=== PATIENT | female | born 1945 | race Caucasian/White ===

== ENCOUNTER 2017-04-19 11:57 | Observation (INO) ==
[2017-04-19] MEDS ORDERED: Ipratropium/Albuterol Neb 3 ML IH ONE (12:28)
--- NOTE | 2017-04-19 13:24 | Emergency Department Note ---
Disposition Clinical Impression: Cough Dyspnea Qualifiers: Dyspnea type: unspecified Qualified Code(s): R06.00 - Dyspnea, unspecified Disposition: Admitted As Inpatient Condition: Good Time of Disposition: 16:50 General Adult HPI - General Chief complaint: ED Shortness of Breath/Dyspnea Stated complaint: coughing and shortness of breath Time Seen by Provider: 04/19/17 12:27 Source: patient Limitations: no limitations Nursing Notes Reviewed: Yes Vital Signs Reviewed: Yes - History of Present Illness HPI Narrative: Patient is a 71-year-old female that presents to the emergency department for cough and shortness of breath. She states that she has been dealing with rhonchi this and has been taking antibiotic for the past 8 days with a has not been getting any better. She states that she feels tired and generalized weakness. States that she has a cough that is productive. Patient denies any sick contacts or recent travels. She denies using any inhalers or nebulizers treatments at home. She has also stated that she has some mild left-sided chest pain that she describes as heaviness with shortness of breath. She states that she has become somewhat diaphoretic with this. States that this started possibly a couple of days ago. Pain Scale: 0 - Related Data Home Medications Medication Instructions Recorded Confirmed Atenolol [Tenormin] 50 mg PO DAILY 04/19/17 04/19/17 Bupropion HCl [Wellbutrin Xl] 300 mg PO DAILY 04/19/17 04/19/17 Cholecalciferol (D-3) [Vitamin D] 1,000 unit PO DAILY 04/19/17 04/19/17 Cyanocobalamin (Vitamin B-12) 1,000 mcg PO DAILY 04/19/17 04/19/17 [Vitamin B12] Paroxetine HCl [Paxil] 40 mg PO DAILY 04/19/17 04/19/17 Simvastatin [Zocor] 20 mg PO HS 04/19/17 04/19/17 levoFLOXacin [Levofloxacin] 750 mg PO DAILY 04/19/17 04/19/17 Allergies Allergy/AdvReac Type Severity Reaction Status Date / Time No Known Allergies Allergy Verified 04/19/17 12:11 All systems ED: reviewed and negative except as stated. Constitutional: Reports: weakness (Generalized) Cardiovascular: Reports: chest pain Respiratory: Reports: cough, dyspnea, sputum production Past Medical History - Past Medical History Medical history: Reports: diabetes, hyperlipidemia, hypertension Psychiatric history: Reports: anxiety, depression - Social History Smoking Status: Never smoker Smokeless Tobacco Status: No Alcohol use: Reports: none Drug use: Reports: none Physical Exam - General Limitations: no limitations General appearance: alert, in no apparent distress - Head Head exam: atraumatic, normocephalic - Eye Eye exam: Present: normal appearance, EOMI - Neck Neck exam: Present: normal inspection, full ROM, trachea midline - Respiratory Respiratory exam: Present: normal lung sounds bilaterally, wheezes (Bilaterally) . Absent: respiratory distress - Cardiovascular Cardiovascular exam: Present: regular rate, normal rhythm, normal heart sounds, +S1, +S2 - Abdominal Exam Abdominal exam: Present: soft, Non-Tender, normal bowel sounds - Neurological Exam Neurological exam: Present: alert, oriented X3 - Psychiatric Psychiatric exam: Present: normal affect, normal mood - Skin Skin exam: Present: warm, dry, intact Course Vital Signs Temperature 98.3 F 04/19/17 12:05 Pulse Rate 97 04/19/17 12:05 Respiratory Rate 16 04/19/17 12:05 Blood Pressure 134/83 04/19/17 12:05 O2 Sat by Pulse Oximetry 94 04/19/17 12:05 Temperature 98 F 04/21/17 00:04 Pulse Rate 80 04/21/17 00:04 Respiratory Rate 16 04/21/17 00:04 Blood Pressure 123/66 04/21/17 00:04 O2 Sat by Pulse Oximetry 92 04/21/17 00:04 Oxygen Delivery Oxygen Delivery Nasal Cannula Medical Decision Making - [facility] Narrative Medical decision making narrative: Due to the patient having just been short of breath with a cardiac workup including CBC, BMP, troponin, chest x-ray, EKG and we will give the patient a breathing treatment here in the emergency department. Her troponin was negative , EKG showed a sinus rhythm. Chest x-ray did not show any acute cardiopulmonary process. The remainder laboratory testing was unremarkable. the patient has failed outpatient therapy of Levaquin. CT showed no evidence for pulmonary. Due to this the patient will need to be admitted to the hospital for further evaluation and management. The patient will be started on azithromycin and ceftriaxone due to failing outpatient therapy. I called and spoke to the hospitalist negative except for the patient to the service. The patient be admitted to the hospital this time for further evaluation and management. - Lab Data Lab results reviewed: Yes I reviewed the patient's lab results. Result diagrams: 04/20/17 01:48 04/20/17 01:48 Lab Results 04/19/17 04/19/17 04/19/17 Range/Units 13:51 13:51 13:51 WBC 9.2 (4.3-11.1) K/mcL RBC 4.78 (3.82-4.97) M/mcL Hgb 12.8 (11.5-15.4) g/dL Hct 39.2 (35.3-44.9) % MCV 82.0 L (83.0-100.0) fL MCH 26.8 L (28.0-33.3) pg MCHC 32.7 (31.6-35.5) g/dL RDW 12.9 (11.5-14.5) % Plt Count 262 (140-400) K/mcL MPV 9.1 L (9.4-12.4) fL Immature Gran % 0.4 (0-4) % Seg Neutrophils % 65.4 % Lymphocytes % 21.9 % Monocytes % 8.5 % Eosinophils % 3.4 % Basophils % 0.4 % Neutrophils # 6.0 (1.6-8.9) K/mcL Lymphocytes # 2.0 (0.6-4.6) K/mcL Monocytes # 0.8 (0.0-1.3) K/mcL Eosinophils # 0.3 (0.0-0.6) K/mcL Basophils # 0.0 (0.0-0.2) K/mcL Sodium 138 (136-145) mEq/L Potassium 4.2 (3.5-5.1) mEq/L Chloride 105 (98-107) mEq/L Carbon Dioxide 29 (23-29) mEq/L BUN 15 (8-23) mg/dL Creatinine 0.67 (0.60-1.20) mg/dL Est GFR ( Amer) > 60 (> 60) Est GFR (Non-Af Amer) > 60 (> 60) BUN/Creatinine Ratio 22 (6-26) Glucose 127 H (70-105) mg/dL Calculated Osmolality 288 (280-300) Calcium 9.1 (8.6-10.3) mg/dL Troponin I < 0.03 (< 0.04) ng/mL B-Natriuretic Peptide (Less than 100) pg/mL 04/19/17 Range/Units 13:51 WBC (4.3-11.1) K/mcL RBC (3.82-4.97) M/mcL Hgb (11.5-15.4) g/dL Hct (35.3-44.9) % MCV (83.0-100.0) fL MCH (28.0-33.3) pg MCHC (31.6-35.5) g/dL RDW (11.5-14.5) % Plt Count (140-400) K/mcL MPV (9.4-12.4) fL Immature Gran % (0-4) % Seg Neutrophils % % Lymphocytes % % Monocytes % % Eosinophils % % Basophils % % Neutrophils # (1.6-8.9) K/mcL Lymphocytes # (0.6-4.6) K/mcL Monocytes # (0.0-1.3) K/mcL Eosinophils # (0.0-0.6) K/mcL Basophils # (0.0-0.2) K/mcL Sodium (136-145) mEq/L Potassium (3.5-5.1) mEq/L Chloride (98-107) mEq/L Carbon Dioxide (23-29) mEq/L BUN (8-23) mg/dL Creatinine (0.60-1.20) mg/dL Est GFR ( Amer) (> 60) Est GFR (Non-Af Amer) (> 60) BUN/Creatinine Ratio (6-26) Glucose (70-105) mg/dL Calculated Osmolality (280-300) Calcium (8.6-10.3) mg/dL Troponin I (< 0.04) ng/mL B-Natriuretic Peptide 29 (Less than 100) pg/mL - Radiology Data Radiology results reviewed: Yes I reviewed the patient's radiology results. Chest CTA 04/19/17 14:47 IMPRESSION: No evidence of pulmonary embolism or acute pulmonary abnormality. Bilateral ground-glass infiltrate D/ / Joés Miguel Moya MD / José Miguel Moya MD Interpreting Provider: José Miguel Moya MD - EKG Data EKG #1 EKG attestation: Yes I reviewed and interpreted this EKG. EKG results narrative: EKG shows sinus rhythm at a rate of 67 bpm, per telephone before coming to respiration of 80, QTC of 409 with a normal axis. There is no evidence of STEMI and this EKG. There is no old EKG for comparison. Attestation Statement - Attestation Attestation: I examined this patient and my medical decision-making was reviewed with the Resident Physician. I agree with the documented findings, disposition and treatment plan as described except to the extent set forth below. Possible pneumonia. Will admit to the hospital after initiation of antibiotics to cover for community-acquired pneumonia. Patient was stable at time of admission. Vital signs are stable.
[2017-04-19 14:05] LABS: Basophils % 0.4 %; Eosinophils # 0.3 K/mcL (0.0-0.6); Eosinophils % 3.4 %; Hematocrit 39.2 % (35.3-44.9); Hemoglobin 12.8 g/dL (11.5-15.4); Immature Granulocytes % 0.4 % (0-4); Lymphocytes % 21.9 %; Mean Corpuscular HGB Conc 32.7 g/dL (31.6-35.5); Mean Corpuscular Hemoglobin 26.8 pg (28.0-33.3); Mean Platelet Volume 9.1 fL (9.4-12.4); Monocytes # 0.8 K/mcL (0.0-1.3); Monocytes % 8.5 %; Platelet Count 262 K/mcL (140-400); Red Blood Count 4.78 M/mcL (3.82-4.97); Red Cell Distribution Width 12.9 % (11.5-14.5); Segmented Neutrophils % 65.4 %
[2017-04-19 14:18] LABS: BUN/Creatinine Ratio 22 (6-26); Blood Urea Nitrogen 15 mg/dL (8-23); Calcium 9.1 mg/dL (8.6-10.3); Carbon Dioxide 29 mEq/L (23-29); Chloride 105 mEq/L (98-107); Glucose 127 mg/dL (70-105); Osmolality,Calculated 288 (280-300); Potassium 4.2 mEq/L (3.5-5.1); Sodium 138 mEq/L (136-145); eGFR For African Americans > 60 (> 60); eGFR For Non-African Americans > 60 (> 60)
[2017-04-19] MEDS ORDERED: methylPREDNISolone 125 MG/2 ML VIAL IVP ONE (14:48)
[2017-04-19] MEDS ORDERED: HYDROcodone BIT/Homatropine 5 MG TABLET PO ONE (14:51)
[2017-04-19] MEDS ORDERED: cefTRIAXone 1,000 MG in Water for inj. (sterile) 10 ML IVP ONE (14:55)
[2017-04-19] MEDS ORDERED: Azithromycin 500 MG in D5% in Water 250 ML IVPB ONE (14:55)
[2017-04-19] MEDS ORDERED: *HR* HYDROcodone/Acet 5/325 mg TABLET PO PRN (20:55)
[2017-04-19] MEDS ORDERED: Acetaminophen 325 MG TABLET PO PRN (20:55)
[2017-04-19] MEDS ORDERED: Ondansetron 4 MG/2 ML VIAL IVP PRN (20:55)
[2017-04-19] MEDS ORDERED: Naloxone 0.4 MG/ML INJ IVP PRN (20:55)
[2017-04-19] MEDS: Ipratropium/Albuterol Neb 3 ML IH SCH (21:29)
--- NOTE | 2017-04-19 21:34 | Internal Med History&Physical ---
<Jacoby Peter - Last Filed: 04/19/17 22:03> Date of Encounter: 04/19/17 Time of Encounter: 20:00 Assessment and Plan (1) Bronchitis Current visit: Yes Status: Acute Unresolved bronchitis w/failed OP abx therapy. Pt. reports being dx w/ bronchitis by PCP last Monday and placed on PO levaquin. Sx worsened. Pt. reports fatigue, SOB, and cough w/sputum production. IVPB azithromycin 500 mg daily and Rocephin 1,000 mg daily for infection coverage. Will adjust abx coverage based on culture results. Supplemental O2 w/titration and SpO2 monitoring. DuoNebs Q6 scheduled. Mucinex for cough. Monitor pt. and f/u labs. Pt. discussed w/Dr. Gotti who is in agreement w/plan o care. Pt. is at high risk for further morbidity based on failed OP abx therapy, worsening sx, and current SOB/dyspnea. Observation. (2) Cough Current visit: Yes Status: Acute Acute cough associated w/SOB. Pt. reports sputum production. Sputum culture. Mucinex for cough. DuoNebs Q6 scheduled. (3) Dyspnea Current visit: Yes Status: Acute Acute SOB since last Monday that has worsened. Initial concern for possible PE, however CTA of chest negative for PE. Supplemental O2 w/titration and SpO2 monitoring. DuoNebs Q6 scheduled. Solumedrol 40 mg Q8. Qualifiers: Dyspnea type: unspecified Qualified Code(s): R06.00 - Dyspnea, unspecified (4) Diabetes Current visit: Yes Status: Chronic Hx of chronic diabetes. Pt. states she used to take Metformin but no longer takes it. BG checks ACHS. A1c in a.m. labs. Low-dose correction insulin sliding scale w/hypoglycemic protocol. Qualifiers: Diabetes mellitus type: type 2 Diabetes mellitus complication status: with unspecified complications Diabetes mellitus intermediate manager insulin use: without fci use Qualified Code(s): E11.8 - Type 2 diabetes mellitus with unspecified complications (5) HTN (hypertension) Current visit: Yes Status: Chronic Hx of chronic HTN. Monitor pt. and VS. Continue pts. Atenolol. Qualifiers: Hypertension type: essential hypertension Qualified Code(s): I10 - Essential (primary) hypertension (6) HLD (hyperlipidemia) Current visit: Yes Status: Chronic Hx of chronic HLD. Lipid panel in a.m. labs. Continue pts. Zocor. Qualifiers: Hyperlipidemia type: pure hypercholesterolemia Qualified Code(s): E78.00 - Pure hypercholesterolemia, unspecified; E78.0 - Pure hypercholesterolemia (7) DVT prophylaxis Current visit: Yes Status: Acute Heparin 5,000 units SQ Q8 for DVT prophylaxis. Monitor pt. for signs of bleeding. Internal Medicine - H&P: HPI Chief complaint: SOB/Dyspnea Admitted From: Emergency Dept Plans for Post Hospital Care: Home History of present illness: Ms. Julien is a 71 year old female with medical hx of diabetes, hyperlipidemia , hypertension reports the ED with chief complaint of shortness of breath and dyspnea which is worsened over the past 2 days. Patient was diagnosed with bronchitis last Monday by her PCP and placed on by mouth Levaquin. Patient states she took 7 pills of the 10 but began feeling worse and more tired, SOB, and developed cough with sputum production. Reports pleuritic chest pain with inspiration and cough. Patient reports nausea and vomiting x1 two days ago but denies fever, chills, headache, chest pain, palpitations, unusual bleeding, numbness, tingling, dizziness, lightheadedness, pre-syncope, or syncope. Past Med Surg Social Fam HX - Past Medical History Source: patient, old records reviewed Medical history: diabetes, hyperlipidemia, hypertension Psychiatric history: anxiety, depression - Social History Smoking Status: Never smoker Smokeless Tobacco Status: No Alcohol use: none Drug use: none Current living situation: Home Activity Level: Independent ambulation Recent Out of Country Travel Within the Last 8 Weeks: No Exposure or Possible Exposure to Illness During Travel: No - Family History Mother Race: Family Member Ethnicity: Non- Living Status: Age at : 83 Cause of : DM complications Hx Family Genitourinary Disorders: Yes (CKD) Hx Family Endocrine Disorder: Yes (DM) Father History Unknown: Yes Race: Family Member Ethnicity: Non- Living Status: Age at : 60 Cause of : Unknown Brother Race: Family Member Ethnicity: Non- Living Status: Age at : 70 Cause of : Metastatic colon cancer Hx Family Cancer: Yes (Colon) Sister Race: Family Member Ethnicity: Non- Living Status: Age at : 80 Cause of : Breast cancer Hx Family Cancer: Yes (Breast) Internal Medicine - H&P: Meds Atenolol [Tenormin] 50 mg PO DAILY 04/19/17 [History] Bupropion HCl [Wellbutrin Xl] 300 mg PO DAILY 04/19/17 [History] Cholecalciferol (D-3) [Vitamin D] 1,000 unit PO DAILY 04/19/17 [History] Cyanocobalamin (Vitamin B-12) [Vitamin B12] 1,000 mcg PO DAILY 04/19/17 [History ] Paroxetine HCl [Paxil] 40 mg PO DAILY 04/19/17 [History] Simvastatin [Zocor] 20 mg PO HS 04/19/17 [History] levoFLOXacin [Levofloxacin] 750 mg PO DAILY 04/19/17 [History] 3 Allergy/AdvReac Type Severity Reaction Status Date / Time No Known Allergies Allergy Verified 04/19/17 12:11 All Systems PM: A 10-system review of systems was performed and is negative for pertinent findings except as documented above in the HPI. - Constitutional Constitutional: as per HPI, weakness, no chills, no fever(s), no night sweats - EENT Eyes: no change in vision, no discharge, no pain, no photophobia Ears: no ear discharge, no ear pain, no tinnitus Nose, mouth and throat: no dysphagia, no nasal discharge, no neck pain, no sore throat - Breasts Breasts: as per HPI - Cardiovascular Cardiovascular ROS IM: as per HPI, dyspnea, dyspnea on exertion, no chest pain, no diaphoresis, no lightheadedness, no palpitations, no syncope - Respiratory Respiratory: as per HPI, cough, dyspnea, dyspnea on exertion, pain with cough, no wheezing, no excessive phlegm production - Gastrointestinal Gastrointestinal: as per HPI, nausea, vomiting, no abdominal pain, no diarrhea, no hematemesis, no hematochezia, no melena - Genitourinary Genitourinary: no change in urinary stream, no dysuria, no flank pain, no hematuria Menstruation: as per HPI - Musculoskeletal Musculoskeletal ROS IM: no numbness, no tingling - Integumentary Integumentary IM: no rash, no unusual bruising - Neurological Neurological ROS: no confusion, no convulsions, no focal weakness, no numbness, no tingling, no tremor(s) - Psychiatric Psychiatric: as per HPI - Endocrine Endocrine IM: as per HPI - Hematologic/Lymphatic Hematologic/Lymphatic: no easy bruising - Allergic/Immunologic Allergic/Immunologic: as per HPI - Constitutional Vitals: Temp Pulse Resp BP Pulse Ox 98.6 F 74 15 120/73 92 04/19/17 20:14 04/19/17 20:14 04/19/17 20:14 04/19/17 20:14 04/19/17 20:14 General appearance: Present: cooperative, A&O X 3, pleasant, no acute distress, obese, answers questions appropriately - Head Head exam: Present: atraumatic, normocephalic - Eye Eye exam: Present: PERRL, conjuntiva pink, sclera anicteric Pupils: Present: PERRL - ENT ENT exam: Present: normal exam - Neck Neck exam general surgery: Present: normal inspection - Respiratory Respiratory exam: Present: accessory muscle use, decreased breath sounds - Cardiovascular Cardiovascular exam: Present: RRR, +S1, +S2. Absent: diastolic murmur, gallop, rubs, systolic murmur - GI/Abdominal GI/Abdominal exam: Present: normal bowel sounds, soft, no peritoneal signs. Absent: distended, tenderness - Rectal Rectal exam: Present: deferred - Additional comments: exam deferred. - Extremities Exam Extremities exam: Present: warm, radial pulses palpable and symmetrical. Absent : calf tenderness, cyanotic, pedal edema - Back Exam Back exam: Present: normal inspection - Neurological Exam Neurological exam: Present: CN II-XII intact, oriented X3, no focal deficits. Absent: pronater drift, facial droop, speech deficit - Psychiatric Psychiatric exam: Present: normal affect, normal mood - Skin Skin exam: Present: dry, intact Internal Med - H&P Results - Labs CBC & Chem 7: 04/19/17 13:51 04/19/17 13:51 - EKG Data EKG shows normal: sinus rhythm - EKG Data Prior EKG available for review: no Interpretation IM: suggestive of ischemia EKG comments: 04/19/17 21:40 EKG dated 04/19/17 shows sinus rhythm with probable inferior myocardial infarction (probably old). - Diagnostic Studies Other Images Additional comments: Impressions Chest CTA 01/17/18 14:47 IMPRESSION: No evidence of pulmonary embolism or acute pulmonary abnormality. Bilateral ground-glass infiltrate D/ / José Miguel Moya MD / José Miguel Moya MD Interpreting Provider: José Miguel Moya MD <Xu Gotti - Last Filed: 04/20/17 01:18> Date of Encounter: 04/19/17 Time of Encounter: 23:20 - Constitutional Vitals: Temp Pulse Resp BP Pulse Ox 97.6 F 85 14 121/68 93 04/19/17 22:49 04/19/17 22:49 04/19/17 22:49 04/19/17 22:49 04/19/17 22:49 General appearance: Present: no acute distress - Eye Eye exam: Present: PERRL. Absent: scleral icterus - ENT ENT exam: Present: mucous membranes dry - Neck Neck exam general surgery: Present: supple. Absent: tenderness - Respiratory Respiratory exam: Present: accessory muscle use, decreased breath sounds, rales (faint left basilar crackles), rhonchi. Absent: wheezes - Cardiovascular Cardiovascular exam: Present: RRR, +S1, +S2 - GI/Abdominal GI/Abdominal exam: Present: normal bowel sounds, soft. Absent: hepatomegaly, tenderness - Extremities Exam Extremities exam: Present: warm. Absent: tenderness - Back Exam Back exam: Absent: CVA tenderness (L), CVA tenderness (R) - Skin Skin exam: Absent: rash Internal Med - H&P Results - Labs CBC & Chem 7: 04/19/17 13:51 04/19/17 13:51 - Attending Attestation I discussed the patient CHITIMACHA, PMH, ROS, lab data, and exam findings with Ethan Peter CNP. I then saw and examined patient independently as well. Patient failed outpatient treatment for bronchitis with worsening symptoms. She now presents with concerns for persistent bronchitis and/or evolving pneumonia. I agree with the treatment regimen detailed by Ethan. I reviewed her EKG and, although she denies chest pain, I will order serial troponins to rule out ischemia. Other than my above comments and noted exam findings, I agree with Ethan's assessment and plan.
[2017-04-19] MEDS ORDERED: D5% in Water 1,000 ML IVC PRN (21:48)
[2017-04-19] MEDS ORDERED: *HR* Dextrose 50 % in Water (Syg) 50 ML SYRINGE IVP PRN (21:48)
[2017-04-19] MEDS ORDERED: Dextrose Gel 15 GM/37.5 ML TUBE PO PRN ×2 (21:48)
[2017-04-19] MEDS: Insulin LISPRO 300 UNITS/3 ML VIAL SQ SCH (22:59)
[2017-04-19] MEDS: MethylPREDNISolone 40 MG/ML VIAL IVP SCH (23:00)
[2017-04-19] MEDS: *HR* Heparin 5,000 UNIT/ML VIAL SQ SCH (23:00)
[2017-04-20 02:01] LABS: Basophils % 0.2 %; Hematocrit 39.7 % (35.3-44.9); Hemoglobin 12.7 g/dL (11.5-15.4); Immature Granulocytes % 0.6 % (0-4); Lymphocytes # 0.8 K/mcL (0.6-4.6); Lymphocytes % 10.4 %; Mean Corpuscular Hemoglobin 26.5 pg (28.0-33.3); Mean Corpuscular Volume 82.9 fL (83.0-100.0); Mean Platelet Volume 9.2 fL (9.4-12.4); Monocytes # 0.1 K/mcL (0.0-1.3); Monocytes % 1.4 %; Neutrophils # 7.1 K/mcL (1.6-8.9); Platelet Count 265 K/mcL (140-400); Red Blood Count 4.79 M/mcL (3.82-4.97); Red Cell Distribution Width 12.7 % (11.5-14.5); Segmented Neutrophils % 87.4 %
[2017-04-20 02:09] LABS: Hemoglobin A1C 6.3 %
[2017-04-20 02:17] LABS: Alanine Aminotransferase 17 Units/L (7-52); Albumin 3.8 g/dL (3.5-5.7); Albumin/Globulin Ratio 1.4 (1.1-2.2); Alkaline Phosphatase 77 Units/L (34-104); Aspartate Amino Transferase 16 Units/L (13-39); BUN/Creatinine Ratio 22 (6-26); Bilirubin,Total 0.4 mg/dL (0.3-1.0); Blood Urea Nitrogen 17 mg/dL (8-23); Carbon Dioxide 26 mEq/L (23-29); Chloride 104 mEq/L (98-107); Chol/HDL Ratio 4.1 (0-4.9); Cholesterol 173 mg/dL (< 200); Globulin 2.8 g/dL (2.4-3.5); Glucose 236 mg/dL (70-105); HDL Cholesterol 42 mg/dL (40-59); LDL Cholesterol,Calculated 121 mg/dL (0-99); Osmolality,Calculated 295 (280-300); Potassium 3.8 mEq/L (3.5-5.1); Sodium 138 mEq/L (136-145); Total Protein 6.6 g/dL (6.4-8.9); Triglycerides 48 mg/dL (< 150); eGFR For African Americans > 60 (> 60); eGFR For Non-African Americans > 60 (> 60)
[2017-04-20] MEDS: Ipratropium/Albuterol Neb 3 ML IH SCH ×4 (03:22→22:17)
--- NOTE | 2017-04-20 07:52 | Electrocardiograph Report ---
[facility] Test Date: 2017-04-19 Pat Name: Janessa Julien Department: 104 Room: 3B12 Gender: F Ordained Minister: : 1945 Requested By: Isacc Arnold Order Number: [id number] Reading MD: Sergey Squires DO Measurements Intervals [place] Rate: 67 P: 55 MS: 144 QRS: 11 QRSD: 80 T: 30 QT: 393 QTc: 409 Interpretive Statements SINUS RHYTHM PROBABLE INFERIOR MYOCARDIAL INFARCTION, PROBABLY OLD WARNING: DATA QUALITY MAY AFFECT INTERPRETATION Electronically Signed On 04-20-2017 7:50:39 EST by Sergey Squires DO
[2017-04-20] MEDS: cefTRIAXone 1,000 MG in Water for inj. (sterile) 20 ML 10 ML IVP SCH (08:03)
[2017-04-20] MEDS: MethylPREDNISolone 40 MG/ML VIAL IVP SCH ×3 (08:03→23:38)
[2017-04-20] MEDS: Insulin LISPRO 300 UNITS/3 ML VIAL SQ SCH ×4 (08:03→20:32)
[2017-04-20] MEDS: Cholecalciferol (D-3) 1,000 UNIT TABLET PO SCH (08:04)
[2017-04-20] MEDS: BuPROPion XL (24 HR) 150 MG TABLET PO SCH (08:04)
[2017-04-20] MEDS: Cyanocobalamin (B-12) 1,000 MCG TABLET PO SCH (08:04)
[2017-04-20] MEDS: *HR* Heparin 5,000 UNIT/ML VIAL SQ SCH ×3 (08:04→23:38)
--- NOTE | 2017-04-20 11:19 | Internal Med Progress Note ---
Date of Encounter: 04/20/17 Time of Encounter: 09:15 - Assessment and plan (1) Bronchitis Current Visit: Yes Status: Acute Assessment and plan: Pt presented to the ED for approximatedly 10 day history of productive cough, fatigue and SOB. She was placed on Levaquin by PCP and diagnosed with bronchitis and finished 7 day course of Levaquin yesterday. She did not improve and presented for admission to the ER. Lungs are diminished with faint expiratory wheezing heard in latoya post bases. No distress. Continue IV Zithromax and Rocephin Continue to titrate 02 as needed to maintain sats > 92% Continue IV Solu-Medrol Continue Duonebs Chest CTA 04/19/17 14:47 IMPRESSION: No evidence of pulmonary embolism or acute pulmonary abnormality. Bilateral ground-glass infiltrate D/ / José Miguel Moya MD / José Miguel Moya MD Interpreting Provider: José Miguel Moya MD (2) Dyspnea Current Visit: Yes Status: Acute Assessment and plan: SOB for 10 days that has worsened. Chest CTA negative for PE. Plan as above. Qualifiers: Dyspnea type: unspecified Qualified Code(s): R06.00 - Dyspnea, unspecified (3) Cough Current Visit: Yes Status: Acute Assessment and plan: Productive cough x 10 days. Plan as above. (4) Diabetes Current Visit: Yes Status: Chronic Assessment and plan: Pt has not been taking Metformin at home. Start SSI, accuchecks achs, and start diabetic diet. A1c 6.3% Qualifiers: Diabetes mellitus type: type 2 Diabetes mellitus complication status: with unspecified complications Diabetes mellitus long-term insulin use: without long-term use Qualified Code(s): E11.8 - Type 2 diabetes mellitus with unspecified complications (5) HTN (hypertension) Current Visit: Yes Status: Chronic Assessment and plan: Chronic. Continue home medications. Qualifiers: Hypertension type: essential hypertension Qualified Code(s): I10 - Essential (primary) hypertension (6) HLD (hyperlipidemia) Current Visit: Yes Status: Chronic Assessment and plan: Chronic. Continue home medications. Qualifiers: Hyperlipidemia type: pure hypercholesterolemia Qualified Code(s): E78.00 - Pure hypercholesterolemia, unspecified; E78.0 - Pure hypercholesterolemia (7) DVT prophylaxis Current Visit: Yes Status: Acute Assessment and plan: Heparin SQ TID - Time Spent With Patient less than 15 minutes - Subjective Interval history: Pt was seen and assessed at bedside at 0915 a.m. She is alert and awake, oriented. She has no headache, n/v/d, chest pain, abd pain, or dizziness. Pt reports cough that is productive sometimes. Denies chills, rigors. Pt states that she feels better, but does not feel that she is ready to go home. - Constitutional Vitals: Temp Pulse Resp BP Pulse Ox 98.4 F 78 16 133/81 94 04/20/17 10:40 04/20/17 10:40 04/20/17 10:40 04/20/17 10:40 04/20/17 10:40 General appearance: Present: cooperative, A&O X 3, pleasant, no acute distress. Absent: answers questions appropriately - Head Head exam: Present: atraumatic, normal inspection, normocephalic - Eye Eye exam: Present: normal appearance, PERRL, conjuntiva pink, sclera anicteric Pupils: Present: PERRL - Neck Neck exam general surgery: Present: normal inspection, supple, trachea midline. Absent: lymphadenopathy - Respiratory Respiratory exam: Present: decreased breath sounds, CTAB, wheezes. Absent: accessory muscle use, rales, respiratory distress, rhonchi Additional comments: Faint wheezing in latoya post bases - Cardiovascular Cardiovascular exam: Present: RRR, +S1, +S2. Absent: diastolic murmur, gallop, rubs, systolic murmur - GI/Abdominal GI/Abdominal exam: Present: hepatomegaly, normal bowel sounds, soft, no peritoneal signs. Absent: distended, tenderness - Extremities Exam Extremities exam: Present: normal capillary refill, normal inspection, tenderness, warm, radial pulses palpable and symmetrical. Absent: calf tenderness, cyanotic, pedal edema - Neurological Exam Neurological exam: Present: alert, oriented X3, no focal deficits. Absent: facial droop, speech deficit - Skin Skin exam: Present: dry, intact, normal color, warm. Absent: rash Internal Medicine: Result - Labs CBC & Chem 7: 04/20/17 01:48 04/20/17 01:48 Labs: Short CBC 04/20/17 Range/Units 01:48 WBC 8.1 (4.3-11.1) K/mcL Hgb 12.7 (11.5-15.4) g/dL Hct 39.7 (35.3-44.9) % Plt Count 265 (140-400) K/mcL Neutrophils # 7.1 (1.6-8.9) K/mcL BMP 04/20/17 01:48 Sodium 138 Potassium 3.8 Chloride 104 Carbon Dioxide 26 BUN 17 Creatinine 0.76 Glucose 236 H Calcium 9.0 Cardiac Enzymes 04/20/17 04/20/17 Range/Units 01:48 07:30 Troponin I < 0.03 < 0.03 (< 0.04) ng/mL Liver Function 04/20/17 Range/Units 01:48 Total Bilirubin 0.4 (0.3-1.0) mg/dL AST 16 (13-39) Units/L ALT 17 (7-52) Units/L Alkaline Phosphatase 77 (34-104) Units/L Albumin 3.8 (3.5-5.7) g/dL Consult Discharge Plan - Plan
[2017-04-20] MEDS: Azithromycin 500 MG in D5% in Water 250 ML IVPB SCH (15:40)
[2017-04-21] MEDS: Ipratropium/Albuterol Neb 3 ML IH SCH ×4 (03:22→22:15)
[2017-04-21 04:55] LABS: Basophils % 0.1 %; Hematocrit 39.3 % (35.3-44.9); Hemoglobin 12.7 g/dL (11.5-15.4); Immature Granulocytes % 1.3 % (0-4); Lymphocytes # 1.7 K/mcL (0.6-4.6); Lymphocytes % 7.9 %; Mean Corpuscular HGB Conc 32.3 g/dL (31.6-35.5); Mean Corpuscular Hemoglobin 26.8 pg (28.0-33.3); Mean Corpuscular Volume 83.1 fL (83.0-100.0); Mean Platelet Volume 9.7 fL (9.4-12.4); Monocytes # 0.8 K/mcL (0.0-1.3); Monocytes % 3.8 %; Platelet Count 308 K/mcL (140-400); Red Blood Count 4.73 M/mcL (3.82-4.97); Segmented Neutrophils % 86.9 %
[2017-04-21 05:00] LABS: Neutrophils # 18.9 K/mcL (1.6-8.9)
[2017-04-21 05:17] LABS: Alanine Aminotransferase 19 Units/L (7-52); Albumin 4.1 g/dL (3.5-5.7); Albumin/Globulin Ratio 1.6 (1.1-2.2); Alkaline Phosphatase 74 Units/L (34-104); Aspartate Amino Transferase 18 Units/L (13-39); BUN/Creatinine Ratio 32 (6-26); Bilirubin,Total 0.3 mg/dL (0.3-1.0); Blood Urea Nitrogen 23 mg/dL (8-23); Calcium 9.2 mg/dL (8.6-10.3); Carbon Dioxide 26 mEq/L (23-29); Chloride 102 mEq/L (98-107); Globulin 2.6 g/dL (2.4-3.5); Glucose 257 mg/dL (70-105); Osmolality,Calculated 294 (280-300); Potassium 3.9 mEq/L (3.5-5.1); Sodium 136 mEq/L (136-145); Total Protein 6.7 g/dL (6.4-8.9); eGFR For African Americans > 60 (> 60); eGFR For Non-African Americans > 60 (> 60)
[2017-04-21] MEDS: BuPROPion XL (24 HR) 150 MG TABLET PO SCH (08:41)
[2017-04-21] MEDS: Cyanocobalamin (B-12) 1,000 MCG TABLET PO SCH (08:42)
[2017-04-21] MEDS: Cholecalciferol (D-3) 1,000 UNIT TABLET PO SCH (08:42)
[2017-04-21] MEDS: cefTRIAXone 1,000 MG in Water for inj. (sterile) 20 ML 10 ML IVP SCH (08:43)
[2017-04-21] MEDS: Insulin LISPRO 300 UNITS/3 ML VIAL SQ SCH ×4 (08:44→20:30)
[2017-04-21] MEDS: *HR* Heparin 5,000 UNIT/ML VIAL SQ SCH ×3 (08:44→23:35)
[2017-04-21] MEDS: MethylPREDNISolone 40 MG/ML VIAL IVP SCH (09:03)
--- NOTE | 2017-04-21 10:06 | Internal Med Progress Note ---
Date of Encounter: 04/21/17 Time of Encounter: 09:15 - Assessment and plan (1) Bronchitis Current Visit: Yes Status: Acute Assessment and plan: Pt presented to the ED for approximatedly 10 day history of productive cough, fatigue and SOB. She was placed on Levaquin by PCP and diagnosed with bronchitis and finished 7 day course of Levaquin yesterday. She did not improve and presented for admission to the ER. Lungs are diminished with faint expiratory wheezing heard in latoya post bases. No distress at rest, but reports BALLESTEROS and increased cough with exertion. Continue IV Zithromax and Rocephin Continue to titrate 02 as needed to maintain sats > 92% Continue IV Solu-Medrol with decreased dose due to hyperglycemia and leukocytosis, pt concern. Continue Duonebs Chest CTA 04/19/17 14:47 IMPRESSION: No evidence of pulmonary embolism or acute pulmonary abnormality. Bilateral ground-glass infiltrate D/ / José Miguel Moya MD / José Miguel Moya MD Interpreting Provider: José Miguel Moya MD (2) Dyspnea Current Visit: Yes Status: Acute Assessment and plan: SOB for 10 days that has worsened. Chest CTA negative for PE. Plan as above. Qualifiers: Dyspnea type: unspecified Qualified Code(s): R06.00 - Dyspnea, unspecified (3) Cough Current Visit: Yes Status: Acute Assessment and plan: Productive cough x 10 days. Plan as above. (4) Diabetes Current Visit: Yes Status: Chronic Assessment and plan: Pt has not been taking Metformin at home. Start SSI, accuchecks achs, and start diabetic diet. A1c 6.3% Hyperglycemia due to IV steroid use, dose decreased due to pt concern. Qualifiers: Diabetes mellitus type: type 2 Diabetes mellitus complication status: with unspecified complications Diabetes mellitus custodial insulin use: without custodial use Qualified Code(s): E11.8 - Type 2 diabetes mellitus with unspecified complications (5) HTN (hypertension) Current Visit: Yes Status: Chronic Assessment and plan: Chronic. Continue home medications. Well controlled in the hospital. Qualifiers: Hypertension type: essential hypertension Qualified Code(s): I10 - Essential (primary) hypertension (6) HLD (hyperlipidemia) Current Visit: Yes Status: Chronic Assessment and plan: Chronic. Continue home medications. Qualifiers: Hyperlipidemia type: pure hypercholesterolemia Qualified Code(s): E78.00 - Pure hypercholesterolemia, unspecified; E78.0 - Pure hypercholesterolemia (7) DVT prophylaxis Current Visit: Yes Status: Acute Assessment and plan: Heparin SQ TID, pt has been ambulatory and up to chair. - Time Spent With Patient less than 15 minutes - Subjective Interval history: Pt was seen and assessed at bedside at 0915 a.m. She is alert and awake, oriented. She has no headache, n/v/d, chest pain, abd pain, or dizziness. Pt reports cough that is productive sometimes. Denies chills. Pt states that she feels better, but is still having BALLESTEROS and cough and does not feel that she will do well at home yet. - Constitutional Vitals: Temp Pulse Resp BP Pulse Ox 98.1 F 79 16 146/74 95 04/21/17 07:55 04/21/17 07:55 04/21/17 09:38 04/21/17 07:55 04/21/17 09:38 General appearance: Present: cooperative, mild distress, A&O X 3, pleasant, no acute distress, answers questions appropriately - Head Head exam: Present: atraumatic, normal inspection, normocephalic - Eye Eye exam: Present: normal appearance, conjuntiva pink, sclera anicteric - Neck Neck exam general surgery: Present: normal inspection, supple, trachea midline. Absent: lymphadenopathy, tenderness - Respiratory Respiratory exam: Present: decreased breath sounds, wheezes. Absent: accessory muscle use, chest wall tenderness, CTAB, rales, respiratory distress, rhonchi - Cardiovascular Cardiovascular exam: Present: RRR, +S1, +S2. Absent: diastolic murmur, gallop, rubs, systolic murmur - GI/Abdominal GI/Abdominal exam: Present: normal bowel sounds, soft, no peritoneal signs. Absent: distended, hepatomegaly, tenderness - Extremities Exam Extremities exam: Present: normal capillary refill, normal inspection, warm, radial pulses palpable and symmetrical. Absent: calf tenderness, cyanotic, pedal edema, tenderness - Neurological Exam Neurological exam: Present: alert, oriented X3, no focal deficits. Absent: facial droop, speech deficit - Skin Skin exam: Present: dry, intact, normal color, warm. Absent: rash Internal Medicine: Result - Labs CBC & Chem 7: 04/21/17 03:47 04/21/17 03:47 Labs: Short CBC 04/21/17 Range/Units 03:47 WBC 21.8 H D (4.3-11.1) K/mcL Hgb 12.7 (11.5-15.4) g/dL Hct 39.3 (35.3-44.9) % Plt Count 308 (140-400) K/mcL Neutrophils # 18.9 H (1.6-8.9) K/mcL BMP 04/21/17 03:47 Sodium 136 Potassium 3.9 Chloride 102 Carbon Dioxide 26 BUN 23 Creatinine 0.72 Glucose 257 H Calcium 9.2 Liver Function 04/21/17 Range/Units 03:47 Total Bilirubin 0.3 (0.3-1.0) mg/dL AST 18 (13-39) Units/L ALT 19 (7-52) Units/L Alkaline Phosphatase 74 (34-104) Units/L Albumin 4.1 (3.5-5.7) g/dL Consult Discharge Plan - Plan Referrals: Odette Price,Tomasa El [Primary Care Provider] -
[2017-04-21] MEDS ORDERED: MethylPREDNISolone 40 MG/ML VIAL IVP ONE (10:16)
[2017-04-21 14:47] LABS: Basophils % 0.1 %; Hematocrit 37.1 % (35.3-44.9); Hemoglobin 12.3 g/dL (11.5-15.4); Immature Granulocytes % 2.5 % (0-4); Lymphocytes # 1.1 K/mcL (0.6-4.6); Lymphocytes % 5.4 %; Mean Corpuscular HGB Conc 33.2 g/dL (31.6-35.5); Mean Corpuscular Hemoglobin 27.3 pg (28.0-33.3); Mean Corpuscular Volume 82.4 fL (83.0-100.0); Mean Platelet Volume 9.3 fL (9.4-12.4); Monocytes # 0.8 K/mcL (0.0-1.3); Monocytes % 3.9 %; Neutrophils # 18.5 K/mcL (1.6-8.9); Platelet Count 285 K/mcL (140-400); Segmented Neutrophils % 88.1 %
[2017-04-21] MEDS: Azithromycin 500 MG in D5% in Water 250 ML IVPB SCH (15:30)
[2017-04-21] MEDS ORDERED: Aspirin 325 MG TABLET PO ONE (23:53)
[2017-04-22] MEDS ORDERED: Nitroglycerin 0.4 MG TAB.SUBL SL PRN (00:16)
[2017-04-22] MEDS ORDERED: Nitroglycerin 0.4 MG TAB.SUBL SL ONE (00:18)
[2017-04-22 00:23] LABS: Basophils % 0.2 %; Eosinophils % 0.1 %; Hematocrit 36.9 % (35.3-44.9); Immature Granulocytes % 4.8 % (0-4); Lymphocytes % 5.4 %; Mean Corpuscular HGB Conc 32.5 g/dL (31.6-35.5); Mean Corpuscular Hemoglobin 27.1 pg (28.0-33.3); Mean Corpuscular Volume 83.3 fL (83.0-100.0); Mean Platelet Volume 9.3 fL (9.4-12.4); Monocytes # 1.1 K/mcL (0.0-1.3); Monocytes % 5.7 %; Platelet Count 289 K/mcL (140-400); Red Blood Count 4.43 M/mcL (3.82-4.97); Segmented Neutrophils % 83.8 %
[2017-04-22 00:37] LABS: Alanine Aminotransferase 38 Units/L (7-52); Albumin 3.9 g/dL (3.5-5.7); Albumin/Globulin Ratio 1.6 (1.1-2.2); Alkaline Phosphatase 67 Units/L (34-104); Aspartate Amino Transferase 26 Units/L (13-39); BUN/Creatinine Ratio 36 (6-26); Bilirubin,Total 0.3 mg/dL (0.3-1.0); Blood Urea Nitrogen 28 mg/dL (8-23); Carbon Dioxide 25 mEq/L (23-29); Chloride 103 mEq/L (98-107); Globulin 2.4 g/dL (2.4-3.5); Glucose 199 mg/dL (70-105); Osmolality,Calculated 289 (280-300); Potassium 4.1 mEq/L (3.5-5.1); Sodium 134 mEq/L (136-145); Total Protein 6.3 g/dL (6.4-8.9); eGFR For African Americans > 60 (> 60); eGFR For Non-African Americans > 60 (> 60)
[2017-04-22] MEDS: Ipratropium/Albuterol Neb 3 ML IH SCH ×2 (03:46→09:23)
--- NOTE | 2017-04-22 08:42 | Internal Med Progress Note ---
Date of Encounter: 04/22/17 Time of Encounter: 08:40 - Assessment and plan (1) Bronchitis Current Visit: Yes Status: Acute Assessment and plan: presented with 10 day history of productive cough, fatigue and SOB. Recently completed 7 day course of Levaquin without improvement in symptoms. Chest CTA negative for pulmonary embolism. Continue IV Zithromax, rocephin. De-escalate steroids to PO as blood sugars elevated. Respiratory PCR, urinary antigens pending (2) Chest pain Current Visit: Yes Status: Acute Assessment and plan: Had an episode of chest pressure overnight on 04/21/17 that resolved with sublingual nitroglycerin and ASA. No known CAD, no previous ischemic eval. Serial troponins negative. EKG without acute ST changes. BNP 29. Stress test recommended however patient is undecided at this time. She is agreeable to echocardiogram at this time. Cont ASA. Qualifiers: Chest pain type: unspecified Qualified Code(s): R07.9 - Chest pain, unspecified (3) Diabetes Current Visit: Yes Status: Chronic Assessment and plan: per hx. appears to be noncompliant with home metformin. Hgb A1c 6.3%. Blood sugars variable but acceptable. Continue SSI. 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 LDL 121. Cont home statin Qualifiers: Hyperlipidemia type: pure hypercholesterolemia Qualified Code(s): E78.00 - Pure hypercholesterolemia, unspecified; E78.0 - Pure hypercholesterolemia (5) HTN (hypertension) Current Visit: Yes Status: Chronic Assessment and plan: per hx. BP controlled. Cont home BP medications. Monitor BP and titrate PRN Qualifiers: Hypertension type: essential hypertension Qualified Code(s): I10 - Essential (primary) hypertension (6) DVT prophylaxis Current Visit: Yes Status: Acute Assessment and plan: Heparin, ambulation - Constitutional Vitals: Temp Pulse Resp BP Pulse Ox 98.1 F 71 16 145/71 93 04/22/17 07:01 04/22/17 07:01 04/22/17 07:01 04/22/17 07:04/22/17 07:01 General appearance: Present: cooperative, mild distress, A&O X 3, pleasant, no acute distress, answers questions appropriately Internal Medicine: Result - Labs CBC & Chem 7: 04/22/17 00:13 04/22/17 00:13 Labs: Short CBC 04/21/17 04/22/17 Range/Units 14:33 00:13 WBC 21.0 H 19.1 H (4.3-11.1) K/mcL Hgb 12.3 12.0 (11.5-15.4) g/dL Hct 37.1 36.9 (35.3-44.9) % Plt Count 285 289 (140-400) K/mcL Neutrophils # 18.5 H 16.0 H (1.6-8.9) K/mcL BMP 04/22/17 00:13 Sodium 134 L Potassium 4.1 Chloride 103 Carbon Dioxide 25 BUN 28 H Creatinine 0.77 Glucose 199 H Calcium 9.0 Cardiac Enzymes 04/22/17 Range/Units 00:13 Troponin I 0.03 (< 0.04) ng/mL Liver Function 04/22/17 Range/Units 00:13 Total Bilirubin 0.3 (0.3-1.0) mg/dL AST 26 (13-39) Units/L ALT 38 (7-52) Units/L Alkaline Phosphatase 67 (34-104) Units/L Albumin 3.9 (3.5-5.7) g/dL Consult Discharge Plan - Plan Referrals: Tomasa Pino M.D. [Primary Care Provider] -
--- NOTE | 2017-04-22 08:56 | Internal Med Progress Note ---
Date of Encounter: 04/22/17 Time of Encounter: 08:53 - Assessment and plan (1) Bronchitis Current Visit: Yes Status: Acute Assessment and plan: presented with 10 day history of productive cough, fatigue and SOB. Recently completed 7 day course of Levaquin without improvement in symptoms. Chest CTA negative for pulmonary embolism. Continue IV Zithromax, rocephin. De-escalate steroids to PO as blood sugars elevated. Respiratory PCR, urinary antigens pending (2) Chest pain Current Visit: Yes Status: Acute Assessment and plan: Had an episode of chest pressure overnight on 04/21/17 that resolved with sublingual nitroglycerin and ASA. No known CAD, no previous ischemic eval. Serial troponins negative. EKG without acute ST changes. BNP 29. Stress test recommended however patient is undecided at this time. She is agreeable to echocardiogram at this time. Cont ASA. Qualifiers: Chest pain type: unspecified Qualified Code(s): R07.9 - Chest pain, unspecified (3) Diabetes Current Visit: Yes Status: Chronic Assessment and plan: per hx. appears to be noncompliant with home metformin. Hgb A1c 6.3%. Blood sugars variable but acceptable. Continue SSI. 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 LDL 121. Cont home statin Qualifiers: Hyperlipidemia type: pure hypercholesterolemia Qualified Code(s): E78.00 - Pure hypercholesterolemia, unspecified; E78.0 - Pure hypercholesterolemia (5) HTN (hypertension) Current Visit: Yes Status: Chronic Assessment and plan: per hx. BP controlled. Cont home BP medications. Monitor BP and titrate PRN Qualifiers: Hypertension type: essential hypertension Qualified Code(s): I10 - Essential (primary) hypertension (6) Leukocytosis Current Visit: Yes Status: Acute Assessment and plan: WBC 20K, suspect secondary to steroids. No tachycardia or hypotension. Hemodynamically stable. Qualifiers: Leukocytosis type: unspecified Qualified Code(s): D72.829 - Elevated white blood cell count, unspecified (7) DVT prophylaxis Current Visit: Yes Status: Acute Assessment and plan: Heparin, ambulation - Subjective Interval history: Seen and examined at bedside. Patient is new to me, information obtained from chart review and patient report. Says she does not feel as well today she did yesterday; says breathing is worse. Complains of nonproductive cough. She reports an episode of chest pressure throughout the night in which she was given an aspirin and sublingual nitroglycerin. Denies chest pain on my exam. Discussed inpatient stress test with patient however she is undecided at this time; she is agreeable to echocardiogram. - Constitutional Vitals: Temp Pulse Resp BP Pulse Ox 98.1 F 71 16 145/71 93 04/22/17 07:01 04/22/17 07:01 04/22/17 07:01 04/22/17 07:01 04/22/17 07:01 General appearance: Present: cooperative, A&O X 3, pleasant, no acute distress, answers questions appropriately - Head Head exam: Present: atraumatic, normocephalic - Eye Eye exam: Present: PERRL, conjuntiva pink, sclera anicteric Pupils: Present: PERRL - Neck Neck exam general surgery: Present: supple, trachea midline. Absent: lymphadenopathy - Respiratory Respiratory exam: Present: CTAB. Absent: accessory muscle use, rales, rhonchi, wheezes - Cardiovascular Cardiovascular exam: Present: RRR, +S1, +S2. Absent: diastolic murmur, gallop, rubs, systolic murmur - GI/Abdominal GI/Abdominal exam: Present: normal bowel sounds, soft, no peritoneal signs. Absent: distended, tenderness - Extremities Exam Extremities exam: Present: warm, radial pulses palpable and symmetrical. Absent : calf tenderness, cyanotic, pedal edema - Neurological Exam Neurological exam: Present: CN II-XII intact, oriented X3, no focal deficits. Absent: pronater drift, facial droop, speech deficit - Skin Skin exam: Present: dry, intact Internal Medicine: Result - Labs CBC & Chem 7: 04/22/17 00:13 04/22/17 00:13 Labs: Short CBC 04/21/17 04/22/17 Range/Units 14:33 00:13 WBC 21.0 H 19.1 H (4.3-11.1) K/mcL Hgb 12.3 12.0 (11.5-15.4) g/dL Hct 37.1 36.9 (35.3-44.9) % Plt Count 285 289 (140-400) K/mcL Neutrophils # 18.5 H 16.0 H (1.6-8.9) K/mcL BMP 04/22/17 00:13 Sodium 134 L Potassium 4.1 Chloride 103 Carbon Dioxide 25 BUN 28 H Creatinine 0.77 Glucose 199 H Calcium 9.0 Cardiac Enzymes 04/22/17 Range/Units 00:13 Troponin I 0.03 (< 0.04) ng/mL Liver Function 04/22/17 Range/Units 00:13 Total Bilirubin 0.3 (0.3-1.0) mg/dL AST 26 (13-39) Units/L ALT 38 (7-52) Units/L Alkaline Phosphatase 67 (34-104) Units/L Albumin 3.9 (3.5-5.7) g/dL Consult Discharge Plan - Plan Referrals: Tomasa Pino M.D. [Primary Care Provider] -
[2017-04-22] MEDS ORDERED: predniSONE 20 MG TABLET PO SCH (09:00)
[2017-04-22] MEDS: Cholecalciferol (D-3) 1,000 UNIT TABLET PO SCH (09:42)
[2017-04-22] MEDS: BuPROPion XL (24 HR) 150 MG TABLET PO SCH (09:42)
[2017-04-22] MEDS: Cyanocobalamin (B-12) 1,000 MCG TABLET PO SCH (09:42)
[2017-04-22] MEDS: cefTRIAXone 1,000 MG in Water for inj. (sterile) 20 ML 10 ML IVP SCH (09:43)
[2017-04-22] MEDS: *HR* Heparin 5,000 UNIT/ML VIAL SQ SCH (09:43)
[2017-04-22] MEDS: Insulin LISPRO 300 UNITS/3 ML VIAL SQ SCH (09:44)
[2017-04-22 11:02] VITALS: BP 123/70
[2017-04-22 11:12] LABS: Adenovirus Not Detected (Not Detect); Bordetella Pertussis Not Detected (Not Detect); Chlamydophila pneumoniae Not Detected (Not Detect); Coronavirus 229E Not Detected (Not Detect); Coronavirus HKU1 Not Detected (Not Detect); Coronavirus NL63 Not Detected (Not Detect); Coronavirus OC43 Not Detected (Not Detect); Human Metapneumovirus Not Detected (Not Detect); Human Rhinovirus/Enterovirus Not Detected (Not Detect); Influenza A Subtype 2009 H1 Not Detected (Not Detect); Influenza A Untypeable Not Detected (Not Detect); Influenza B Not Detected (Not Detect); Mycoplasma pneumoniae Not Detected (Not Detect); Parainfluenza Virus 1 Not Detected (Not Detect); Parainfluenza Virus 2 Not Detected (Not Detect); Parainfluenza Virus 3 Not Detected (Not Detect); Parainfluenza Virus 4 Not Detected (Not Detect); Respiratory Syncytial Virus Not Detected (Not Detect)
--- NOTE | 2017-04-22 12:26 | Discharge Summary ---
Date of Encounter: 04/22/17 Time of Encounter: 12:26 - Discharge Diagnosis (1) Bronchitis Priority: Primary Status: Acute Comments: presented with 10 day history of productive cough, fatigue and SOB. Recently completed 7 day course of Levaquin without improvement in symptoms. Chest CTA negative for pulmonary embolism. Treated with IV Zithromax, rocephin. Respiratory PCR negative. Discharge home with doxycycline, steroid bursts. Recommend follow-up with PCP within 1-2 weeks. (2) Chest pain Priority: Primary Status: Resolved Comments: had an episode of chest pressure overnight on 04/21/17 that resolved with sublingual nitroglycerin and ASA. No known CAD, no previous ischemic eval. Serial troponins negative. EKG without acute ST changes. BNP 29. Stress test and echo recommended however patient declined. Says she will follow up outpatient with her PCP. Cont ASA Qualifiers: Chest pain type: unspecified Qualified Code(s): R07.9 - Chest pain, unspecified (3) Diabetes Priority: Secondary Status: Chronic Comments: per hx. Appears to be non-compliant with home metformin. Hgb A1c 6.3%. Blood sugars elevated secondary to steroids. Strongly encouraged medication/dietary compliance. Recommend follow-up with PCP within 1-2 weeks. Qualifiers: Diabetes mellitus type: type 2 Diabetes mellitus complication status: with unspecified complications Diabetes mellitus mcfp insulin use: without mcfp use Qualified Code(s): E11.8 - Type 2 diabetes mellitus with unspecified complications (4) HLD (hyperlipidemia) Priority: Secondary Status: Chronic Comments: per hx. LDL 121. Cont home statin Qualifiers: Hyperlipidemia type: pure hypercholesterolemia Qualified Code(s): E78.00 - Pure hypercholesterolemia, unspecified; E78.0 - Pure hypercholesterolemia (5) HTN (hypertension) Priority: Secondary Status: Chronic Comments: per hx. BP controlled. Cont home BP medications. Qualifiers: Hypertension type: essential hypertension Qualified Code(s): I10 - Essential (primary) hypertension - Discharge Medications Prescriptions: Aspirin 81 mg PO DAILY #30 tab.chew Doxycycline 100 mg PO BID #10 capsule predniSONE [PredniSONE] 40 mg PO DAILY #8 tablet Home Medications: Atenolol [Tenormin] 50 mg PO DAILY 04/19/17 [History] Bupropion HCl [Wellbutrin Xl] 300 mg PO DAILY 04/19/17 [History] Cholecalciferol (D-3) [Vitamin D] 1,000 unit PO DAILY 04/19/17 [History] Cyanocobalamin (Vitamin B-12) [Vitamin B12] 1,000 mcg PO DAILY 04/19/17 [History ] Paroxetine HCl [Paxil] 40 mg PO DAILY 04/19/17 [History] Simvastatin [Zocor] 20 mg PO HS 04/19/17 [History] Aspirin 81 mg PO DAILY #30 tab.chew 04/22/17 [Rx] Doxycycline 100 mg PO BID #10 capsule 04/22/17 [Rx] predniSONE [PredniSONE] 40 mg PO DAILY #8 tablet 04/22/17 [Rx] Allergies/Adverse Reactions: 3 Allergy/AdvReac Type Severity Reaction Status Date / Time No Known Allergies Allergy Verified 04/19/17 12:11 Procedures/tests Complete & Pending: Procedures Performed prior 72 hours Category Date Time Status EKG [ECG 12 lead ECG] [ECG] Stat Y 04/21/17 23:53 Ordered EV echocardiogram Routine Y 04/22/17 08:43 Ordered Date of admission: 04/19/17 17:12 Primary care physician: Tomasa Pino M.D. Consults: 04/19/17 20:58 Consult to [employer] Car [employer] [CONS] Routine Reason for SW Consult: Please assess patient for possible home needs for post -discharge planning. Discharging clinician: Kelly Cintron Anticipated date of discharge: 04/22/17 - Patient Status Disposition: Home, Self-Care Condition: Good Overall status at discharge: patient is progressing back to baseline - Discharge Instructions Instructions: Acute Bronchitis (DC), Chest Pain (DC), Aspirin (By mouth), Doxycycline (By mouth), Prednisone (By mouth) Follow Up With: Odette Price,Tomasa El [Primary Care Provider] - Forms: ED Satisfaction Letter - Diet and Activity Activity: increase activity as tolerated Diet: diabetic diet Interval History: Patient decided against stress test and echo. Stated she prefers to follow-up with her PCP. See 04/22/2017 progress note for further details. Advised to return to ER if CP/SOB returns. Hospital course: See assessment and plan for hospital course - Time Spent with Patient Total time spent providing and/or coordinating discharge services: - Constitutional Vitals: Temp Pulse Resp BP Pulse Ox 98.2 F 71 16 123/70 92 04/22/17 10:59 04/22/17 10:59 04/22/17 10:59 04/22/17 10:59 04/22/17 10:59 General appearance: Present: cooperative, A&O X 3, pleasant, no acute distress, answers questions appropriately - Head Head exam: Present: atraumatic, normocephalic - Eye Eye exam: Present: PERRL, conjuntiva pink, sclera anicteric Pupils: Present: PERRL - Neck Neck exam general surgery: Present: supple, trachea midline. Absent: lymphadenopathy - Respiratory Respiratory exam: Present: CTAB. Absent: accessory muscle use, rales, rhonchi, wheezes - Cardiovascular Cardiovascular exam: Present: RRR, +S1, +S2. Absent: diastolic murmur, gallop, rubs, systolic murmur - GI/Abdominal GI/Abdominal exam: Present: normal bowel sounds, soft, no peritoneal signs. Absent: distended, tenderness - Extremities Exam Extremities exam: Present: warm, radial pulses palpable and symmetrical. Absent : calf tenderness, cyanotic, pedal edema - Neurological Exam Neurological exam: Present: CN II-XII intact, oriented X3, no focal deficits. Absent: pronater drift, facial droop, speech deficit - Skin Skin exam: Present: dry, intact
[2017-04-23] MEDS ORDERED: Aspirin 81 MG TAB.CHEW PO SCH (09:00)
--- NOTE | 2017-04-25 07:03 | Electrocardiograph Report ---
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
== END 2017-04-22 14:05 | disposition home or self-care (01) ==
LOC: 3BNU 11:57 → EMEROO 11:57 → 3BNU 18:12
PROVIDERS: ADMIT Hospitalist; ATTEND Registered Nurse